=== PATIENT | male | born 1975 | race Caucasian/White ===

== ENCOUNTER 2020-12-16 12:41 | Inpatient (IN) | payer OTHER, SELFPAY ==
[~2020-12-16] VITALS: Ht 175.3 cm; Wt 104.3 kg
[2020-12-16 12:58] VITALS: BP_SYST 136
[2020-12-16] MEDS ORDERED: KETOROLAC TROMETHAMINE 30 MG VIAL IVP ONE (13:15)
[2020-12-16 13:39] LABS: BASOPHILS # (AUTO) 0.1 K/uL (0.0-0.2); BASOPHILS % (AUTO) 0.6 % (0.0-2.0); EOSINOPHILS # (AUTO) 0.2 K/uL (0.0-0.4); EOSINOPHILS % (AUTO) 1.9 % (0.0-4.0); HEMATOCRIT 39.2 % (36-54); HEMOGLOBIN 13.3 g/dL (14.0-18.0); LYMPHOCYTES # (AUTO) 2.1 K/uL (1.0-5.5); LYMPHOCYTES % (AUTO) 20.4 % (20.5-51.5); MEAN CORPUSCULAR HEMOGLOBIN 30 pg (27-31); MEAN CORPUSCULAR HGB CONC 34 % (32-36); MEAN CORPUSCULAR VOLUME 89 fL (79.0-98.0); MONOCYTES # (AUTO) 0.7 K/uL (0.0-1.0); NEUTROPHILS # (AUTO) 7.1 K/uL (1.8-7.7); NEUTROPHILS % (AUTO) 70.1 % (40.0-70.0); PLATELET COUNT (AUTO) 407 K/uL (130-430); RED BLOOD CELL COUNT(AUTO) 4.41 MIL/uL (4.2-6.2); RED CELL DISTRIBUTION WIDTH 13.8 % (9.0-15.0); WHITE BLOOD COUNT (AUTO) 10.1 K/uL (4.8-10.8)
[2020-12-16 14:01] LABS: CALCIUM 8.8 mg/dL (8.4-11.0); CREATININE 0.7 mg/dL (0.55-1.30); POTASSIUM 3.8 mmol/L (3.5-5.1)
[2020-12-16 14:14] LABS: ALBUMIN 3.5 g/dL (3.4-4.8); TOTAL BILIRUBIN 0.3 mg/dL (0.0-1.0)
[2020-12-16] MEDS ORDERED: TRAM50TA2 PO (15:25)
[2020-12-16] MEDS: D5/0.45 NS 1,000 ML IV SCH (15:45)
[2020-12-16 17:30] VITALS: BP_SYST 117
[2020-12-16] MEDS ORDERED: FLU VACC QS2020-21(65UP)/PF 0.7 ML/SYRINGE I.M. PRN (18:15)
[2020-12-16] MEDS ORDERED: FLU VACC QS2020-21 (6 mos & up) 0.5 ML/SYRINGE I.M. PRN (18:15)
[2020-12-16] MEDS ORDERED: OLAN20TA3 PO (18:37)
[2020-12-16] MEDS ORDERED: NEU300 PO (18:38)
[2020-12-16] MEDS ORDERED: DIVA250T PO (18:38)
[2020-12-16] MEDS ORDERED: VIS25 PO (18:39)
[2020-12-16] MEDS ORDERED: MIRT15TA2 PO (18:39)
[2020-12-16] MEDS ORDERED: ARIP5TAB10 PO (18:40)
[2020-12-16] MEDS ORDERED: ARIPiprazole 5 MG TAB PO ONE (19:00)
[2020-12-16] MEDS ORDERED: GABAPENTIN 300 MG CAPSULE PO SCH (21:00)
[2020-12-16] MEDS ORDERED: DIVALPROEX SODIUM 250 MG TAB.SR.24H (DEPAKOTE ER) PO SCH (21:00)
[2020-12-16 21:35] VITALS: BP_SYST 95
[2020-12-16] MEDS: MIRTAZAPINE 15 MG TABLET PO SCH (21:37)
[2020-12-16] MEDS: OLANZapine 10 MG TABLET PO SCH (21:37)
[2020-12-17] VITALS: BP_SYST 111
[2020-12-17] MEDS: D5/0.45 NS 1,000 ML IV SCH ×2 (06:04→17:24)
[2020-12-17 08:00] VITALS: BP_SYST 99
[2020-12-17 08:14] LABS: BASOPHILS # (AUTO) 0.1 K/uL (0.0-0.2); BASOPHILS % (AUTO) 0.6 % (0.0-2.0); EOSINOPHILS # (AUTO) 0.2 K/uL (0.0-0.4); EOSINOPHILS % (AUTO) 3.1 % (0.0-4.0); HEMOGLOBIN 12.9 g/dL (14.0-18.0); LYMPHOCYTES # (AUTO) 1.4 K/uL (1.0-5.5); LYMPHOCYTES % (AUTO) 18.1 % (20.5-51.5); MEAN CORPUSCULAR HEMOGLOBIN 30 pg (27-31); MEAN CORPUSCULAR HGB CONC 34 % (32-36); MEAN CORPUSCULAR VOLUME 89 fL (79.0-98.0); MONOCYTES # (AUTO) 0.7 K/uL (0.0-1.0); MONOCYTES % (AUTO) 9.3 % (1.7-9.3); NEUTROPHILS # (AUTO) 5.5 K/uL (1.8-7.7); NEUTROPHILS % (AUTO) 68.9 % (40.0-70.0); PLATELET COUNT (AUTO) 339 K/uL (130-430); RED BLOOD CELL COUNT(AUTO) 4.25 MIL/uL (4.2-6.2); RED CELL DISTRIBUTION WIDTH 13.6 % (9.0-15.0)
[2020-12-17 08:17] LABS: ALBUMIN 2.9 g/dL (3.4-4.8); CALCIUM 8.3 mg/dL (8.4-11.0); CREATININE 0.75 mg/dL (0.55-1.30); POTASSIUM 4.2 mmol/L (3.5-5.1); TOTAL BILIRUBIN 0.3 mg/dL (0.0-1.0)
[2020-12-17] MEDS ORDERED: ARIPiprazole 5 MG TAB ONE (08:52)
[2020-12-17] MEDS ORDERED: ARIPiprazole 5 MG TAB PO SCH (09:00)
[2020-12-17 11:18] VITALS: BP_SYST 116
[2020-12-17] MEDS ORDERED: DIVA125T2 PO (11:50)
[2020-12-17] MEDS ORDERED: NEU100 PO (11:51)
[2020-12-17] MEDS: traMADol HCL HCL 50 MG TABLET (ULTRAM) PO PRN (12:29)
[2020-12-17] MEDS ORDERED: GABAPENTIN PO SCH (15:00)
[2020-12-17] MEDS ORDERED: GABAPENTIN 100 MG CAPSULE PO SCH (15:00)
[2020-12-17] MEDS ORDERED: DIVALPROEX SODIUM PO SCH ×2 (15:00)
[2020-12-17] MEDS: GABAPENTIN 300 MG CAPSULE PO SCH ×2 (15:04→20:38)
[2020-12-17] MEDS: DIVALPROEX SODIUM 250 MG TABLET(DEPAKOTE) PO SCH ×2 (15:04→20:38)
[2020-12-17 15:56] VITALS: BP_SYST 128
[2020-12-17] MEDS: OLANZapine 10 MG TABLET PO SCH (20:37)
[2020-12-17] MEDS: MIRTAZAPINE 15 MG TABLET PO SCH (20:38)
[2020-12-18 02:45] VITALS: BP_SYST 92
[2020-12-18] MEDS: D5/0.45 NS 1,000 ML IV SCH (07:49)
[2020-12-18 08:00] VITALS: BP_SYST 128
[2020-12-18] MEDS ORDERED: ARIPiprazole 5 MG TAB ONE (08:53)
[2020-12-18 09:00] VITALS: BP_SYST 117
[2020-12-18] MEDS: DIVALPROEX SODIUM 250 MG TABLET(DEPAKOTE) PO SCH ×3 (09:01→20:59)
[2020-12-18] MEDS: GABAPENTIN 300 MG CAPSULE PO SCH ×3 (09:01→20:59)
[2020-12-18] MEDS: traMADol HCL HCL 50 MG TABLET (ULTRAM) PO PRN ×2 (10:07→18:20)
[2020-12-18 13:13] VITALS: BP_SYST 108
[2020-12-18] MEDS: OLANZapine 10 MG TABLET PO SCH (20:58)
[2020-12-18] MEDS: MIRTAZAPINE 15 MG TABLET PO SCH (20:59)
[2020-12-18 21:00] VITALS: BP_SYST 117
[2020-12-19] MEDS: D5/0.45 NS 1,000 ML IV SCH ×3 (06:43→21:27)
[2020-12-19 08:00] VITALS: BP_SYST 112
[2020-12-19] MEDS: GABAPENTIN 300 MG CAPSULE PO SCH ×3 (09:49→21:27)
[2020-12-19] MEDS: DIVALPROEX SODIUM 250 MG TABLET(DEPAKOTE) PO SCH ×3 (09:49→21:28)
[2020-12-19] MEDS: traMADol HCL HCL 50 MG TABLET (ULTRAM) PO PRN (11:20)
[2020-12-19 12:09] VITALS: BP_SYST 117
[2020-12-19] MEDS ORDERED: POLYETHYLENE GLYCOL 3350, 17 GM/ POWD.PACK PO ONE (12:15)
[2020-12-19] MEDS ORDERED: POLYETHYLENE GLYCOL 3350, 17 GM/ POWD.PACK ONE (12:44)
[2020-12-19 16:09] VITALS: BP_SYST 115
[2020-12-19 20:00] VITALS: BP_SYST 102
[2020-12-19] MEDS: MIRTAZAPINE 15 MG TABLET PO SCH (21:27)
[2020-12-19] MEDS: OLANZapine 10 MG TABLET PO SCH (21:27)
[2020-12-20 00:09] VITALS: BP_SYST 91
[2020-12-20 06:46] LABS: BASOPHILS # (AUTO) 0.1 K/uL (0.0-0.2); BASOPHILS % (AUTO) 0.7 % (0.0-2.0); EOSINOPHILS # (AUTO) 0.4 K/uL (0.0-0.4); EOSINOPHILS % (AUTO) 3.9 % (0.0-4.0); HEMATOCRIT 37.8 % (36-54); HEMOGLOBIN 12.8 g/dL (14.0-18.0); LYMPHOCYTES # (AUTO) 1.6 K/uL (1.0-5.5); LYMPHOCYTES % (AUTO) 17.4 % (20.5-51.5); MEAN CORPUSCULAR HEMOGLOBIN 30 pg (27-31); MEAN CORPUSCULAR HGB CONC 34 % (32-36); MEAN CORPUSCULAR VOLUME 88 fL (79.0-98.0); MONOCYTES % (AUTO) 10.6 % (1.7-9.3); NEUTROPHILS # (AUTO) 6.3 K/uL (1.8-7.7); NEUTROPHILS % (AUTO) 67.4 % (40.0-70.0); PLATELET COUNT (AUTO) 346 K/uL (130-430); RED CELL DISTRIBUTION WIDTH 13.7 % (9.0-15.0); WHITE BLOOD COUNT (AUTO) 9.3 K/uL (4.8-10.8)
[2020-12-20 07:07] LABS: CALCIUM 8.7 mg/dL (8.4-11.0); CREATININE 0.63 mg/dL (0.55-1.30)
[2020-12-20 08:00] VITALS: BP_SYST 108
[2020-12-20] MEDS: DIVALPROEX SODIUM 250 MG TABLET(DEPAKOTE) PO SCH (08:54)
[2020-12-20] MEDS: GABAPENTIN 300 MG CAPSULE PO SCH (08:55)
[2020-12-20] MEDS ORDERED: POLYETHYLENE GLYCOL 3350, 17 GM/ POWD.PACK PO SCH (09:00)
[2020-12-20 10:10] VITALS: BP_SYST 108
== END 2020-12-20 10:38 | disposition home or self-care (01) | DRG 392 ==
LOC: SED 12:41 → STU 15:35 → SMU 17:11
PROVIDERS: ADMIT Internal Medicine; ATTEND Internal Medicine
DX: K59.00 Constipation, unspecified (principal); R10.9 Unspecified abdominal pain; E78.5 Hyperlipidemia, unspecified; F25.9 Schizoaffective disorder, unspecified; G89.29 Other chronic pain; Z20.822 Contact with and (suspected) exposure to COVID-19; M54.5 Low back pain; Z98.1 Arthrodesis status; Z88.5 Allergy status to narcotic agent; Z88.8 Allergy status to other drugs, medicaments and biological substances; Z79.899 Other long term (current) drug therapy
CPT/HCPCS: 36415; 76376; 80048; 80053; 82150-TC; 83690-TC; 85025; 85379; 96374; J1885